=== PATIENT | female | born 1950 | race Caucasian/White ===

== ENCOUNTER 2018-08-25 22:56 | Inpatient (IN) | payer MEDICARE, MEDICAID ==
[~2018-08-25] VITALS: Ht 152.4 cm; Wt 109.3 kg
[2018-08-26] MEDS ORDERED: VANCOMYCIN 1 G PREMIX 200 ML IV ONE (06:15)
[2018-08-26 07:04] LABS: CLARITY URINE CLEAR (CLEAR); COLOR URINE YELLOW (YELLOW); KETONES URINE TRACE (NEGATIVE); LEUKOCYTE ESTERASE URINE NEGATIVE (NEGATIVE); NITRITE URINE NEGATIVE (NEGATIVE); OCCULT BLOOD URINE NEGATIVE (NEGATIVE); PH URINE 6.5 (4.5-8.0); PROTEIN URINE NEGATIVE (NEGATIVE); SPECIFIC GRAVITY URINE 1.019 (1.005-1.030); UROBILINOGEN URINE 0.2 E.U./dL (0.2-1.0)
[2018-08-26 07:54] LABS: BASOPHILS % 0.5 % (0.0-2.0); EOSINOPHILS % 1.6 % (0.0-5.0); HEMATOCRIT. 48.5 % (36.0-48.0); HEMOGLOBIN. 16.9 g/dL (12.0-16.0); LYMPHOCYTES % 30.9 % (20.0-50.0); MEAN CORPUSCULAR HEMOGLOBIN 32.5 pg (28.0-32.0); MEAN CORPUSCULAR VOLUME 93.4 fL (81.0-99.0); MEAN PLATELET VOLUME 9.1 fl (7.4-10.4); MONOCYTES % 7.4 % (2.0-8.0); NEUTROPHILS % 59.6 % (40.0-76.0); PLATELET 170 x1000/uL (130-400); RED BLOOD CELL COUNT 5.19 mill/uL (4.2-5.4); RED CELL DISTRIBUTION WIDTH 14.5 % (11.6-14.6)
[2018-08-26 08:00] LABS: CHLORIDE 104 mEq/L (98-107)
[2018-08-26] MEDS ORDERED: LEVOFLOXACIN 750MG PREMIX 150 ML IV ONE (08:00)
[2018-08-26 08:01] LABS: PARTIAL THROMBOPLASTIN TIME 31.3 sec (23.4-31.0); PROTHROMBIN TIME 10.3 sec (9.1-11.1)
[2018-08-26] MEDS ORDERED: SODIUM CHLORIDE 0.9% 1,000 ML IV ONE (08:33)
[2018-08-26 12:30] VITALS: BP 148/72
[2018-08-26 13:00] VITALS: BP 120/75
[2018-08-26] MEDS ORDERED: ACETAMINOPHEN 325MG TABLET PO PRN (13:45)
[2018-08-26] MEDS ORDERED: ROSU10TA25 MT (14:54)
[2018-08-26] MEDS ORDERED: MULT-1146 MT (14:54)
[2018-08-26] MEDS ORDERED: ENAL1TAB34 MT (14:54)
[2018-08-26] MEDS ORDERED: PARO10TA74 MT (14:54)
[2018-08-26] MEDS ORDERED: OR220 GT (14:54)
[2018-08-26] MEDS ORDERED: DOCU250C69 MT (14:54)
[2018-08-26] MEDS ORDERED: ASCO500C15 MT (14:54)
[2018-08-26] MEDS ORDERED: ALBU18HF2 IH (14:54)
[2018-08-26] MEDS ORDERED: METO-396 MT (14:54)
[2018-08-26] MEDS ORDERED: DIVA-75 MT (14:54)
[2018-08-26] MEDS ORDERED: ZOLP5TAB8 MT (14:54)
[2018-08-26] MEDS ORDERED: DIVA-73 MT (14:54)
[2018-08-26] MEDS ORDERED: MOM MT (14:54)
[2018-08-26] MEDS ORDERED: BACL-141 MT (14:54)
[2018-08-26] MEDS ORDERED: DIVALPROEX SODIUM 250MG DR TABLET PO SCH (17:00)
[2018-08-26] MEDS ORDERED: MAGNESIUM HYDROXIDE 400MG/5ML 30ML UDC PO SCH (17:00)
[2018-08-26] MEDS: PAROXETINE HCL 10MG TABLET PO SCH (18:50)
[2018-08-26] MEDS: DIVALPROEX SODIUM 500MG ER TABLET PO SCH (18:50)
[2018-08-26] MEDS: ENOXAPARIN 40MG/0.4ML SYR SUBCUT SCH ×3 (18:54→22:17)
[2018-08-26] MEDS ORDERED: LORAZEPAM 0.5MG TABLET PO NR (19:30)
[2018-08-26] MEDS ORDERED: ATORVASTATIN CALCIUM 40MG TABLET PO SCH (21:00)
[2018-08-26] MEDS: BACLOFEN 10MG TABLET PO SCH (22:16)
[2018-08-26] MEDS: METOPROLOL TARTRATE 25MG TABLET PO SCH (22:16)
[2018-08-27] VITALS: BP 149/80
[2018-08-27 04:00] VITALS: BP 112/62
[2018-08-27] MEDS: BACLOFEN 10MG TABLET PO SCH ×2 (05:53→17:10)
[2018-08-27 07:37] LABS: BASOPHILS % 0.3 % (0.0-2.0); CHLORIDE 107 mEq/L (98-107); EOSINOPHILS % 1.6 % (0.0-5.0); HEMATOCRIT. 45.3 % (36.0-48.0); HEMOGLOBIN. 15.6 g/dL (12.0-16.0); LYMPHOCYTES % 37.6 % (20.0-50.0); MEAN CORPUSCULAR HEMOGLOBIN 32.4 pg (28.0-32.0); MEAN CORPUSCULAR VOLUME 93.7 fL (81.0-99.0); MONOCYTES % 9.1 % (2.0-8.0); NEUTROPHILS % 51.4 % (40.0-76.0); PLATELET 151 x1000/uL (130-400); RED BLOOD CELL COUNT 4.83 mill/uL (4.2-5.4); RED CELL DISTRIBUTION WIDTH 14.5 % (11.6-14.6)
[2018-08-27 09:00] VITALS: BP 166/83
[2018-08-27] MEDS: ENOXAPARIN 40MG/0.4ML SYR SUBCUT SCH (09:00)
[2018-08-27] MEDS ORDERED: LOSARTAN POTASSIUM 100 MG TABLET PO SCH (09:00)
[2018-08-27] MEDS ORDERED: NICOTINE 14MG PATCH TD SCH (09:00)
[2018-08-27] MEDS: DIVALPROEX SODIUM 500MG ER TABLET PO SCH (09:34)
[2018-08-27] MEDS: PAROXETINE HCL 10MG TABLET PO SCH (09:34)
[2018-08-27] MEDS: METOPROLOL TARTRATE 25MG TABLET PO SCH (09:51)
[2018-08-27] MEDS ORDERED: LEVOFLOXACIN 500MG PREMIX 100 ML IV SCH (11:00)
[2018-08-27 14:58] VITALS: BP 137/85
== END 2018-08-27 18:55 | DRG 383 ==
LOC: ER 22:56 → 7WST 08-26 08:14 → EDBEDREQSVC 08-26 08:17 → EDBEDREQ 08-26 08:17 → CANRESERV 08-26 09:20 → ENRESERV 08-26 09:20 → CANRESERV 08-26 10:03 → ENRESERV 08-26 10:32
PROVIDERS: ADMIT Ophthalmology; ATTEND Ophthalmology
DX: L03.115 Cellulitis of right lower limb (principal); J44.9 Chronic obstructive pulmonary disease, unspecified; F20.9 Schizophrenia, unspecified; G82.20 Paraplegia, unspecified; I10 Essential (primary) hypertension; F32.9 Major depressive disorder, single episode, unspecified; K21.9 Gastro-esophageal reflux disease without esophagitis; L03.116 Cellulitis of left lower limb; E78.5 Hyperlipidemia, unspecified; F17.210 Nicotine dependence, cigarettes, uncomplicated; Z74.01 Bed confinement status; Z88.0 Allergy status to penicillin; Z88.6 Allergy status to analgesic agent; Z88.1 Allergy status to other antibiotic agents; Z88.5 Allergy status to narcotic agent; Z79.899 Other long term (current) drug therapy
CPT/HCPCS: 36415; 71045; 80048; 80165; 83605; 83880; 84145; 84484; 93005; 93970; 96374; 96375; 99285; J1650; J1956; J3370; J7030

== ENCOUNTER 2018-12-04 12:52 | Inpatient (IN) | payer MEDICARE, MEDICAID ==
[~2018-12-04] VITALS: Ht 162.6 cm; Wt 107.5 kg
[~2018-12-04 12:52] MED LIST: ALBU18HF2 IH; ASCO500C15 MT; BACL-141 MT; DIVA-73 MT; DIVA-75 MT; DOCU250C69 MT; ENAL1TAB34 MT; METO-396 MT; MOM MT; MULT-1146 MT; OR220 GT; PARO10TA74 MT; ROSU10TA25 MT; ZOLP5TAB8 MT
[2018-12-04 15:18] LABS: BASOPHILS % 0.3 % (0.0-2.0); CHLORIDE 102 mEq/L (98-107); EOSINOPHILS % 1.7 % (0.0-5.0); HEMATOCRIT. 50.6 % (36.0-48.0); HEMOGLOBIN. 17.2 g/dL (12.0-16.0); LYMPHOCYTES % 30.5 % (20.0-50.0); MEAN CORPUSCULAR HEMOGLOBIN 31.9 pg (28.0-32.0); MEAN CORPUSCULAR VOLUME 93.9 fL (81.0-99.0); MONOCYTES % 12.5 % (2.0-8.0); PLATELET 142 x1000/uL (130-400); RED BLOOD CELL COUNT 5.39 mill/uL (4.2-5.4); RED CELL DISTRIBUTION WIDTH 14.5 % (11.6-14.6)
[2018-12-04 15:19] LABS: INR 1.1; PROTHROMBIN TIME 10.8 sec (9.1-11.1)
[2018-12-04] MEDS ORDERED: CLINDAMYCIN 600 MG in DEXTROSE 5% WATER 50 ML IV ONE ×2 (16:00→17:00)
[2018-12-04] MEDS ORDERED: CLONIDINE 0.1MG TABLET PO PRN (17:45)
[2018-12-04] MEDS ORDERED: VANCOMYCIN 1 G PREMIX 200 ML IV SCH (17:45)
[2018-12-04] MEDS ORDERED: ALBUTEROL 6.7GM HFA INHALER ORI PRN (18:15)
[2018-12-04 19:12] LABS: HEPATITIS B SURFACE ANTIGEN NEGATIVE
[2018-12-04 22:00] VITALS: BP 127/74
[2018-12-04] MEDS ORDERED: ALBUTEROL (0.083%) 2.5MG/3ML NEB HHN PRN (22:00)
[2018-12-04 22:12] VITALS: BP 127/74
[2018-12-04] MEDS: DIVALPROEX SODIUM 250MG DR TABLET PO SCH (23:03)
[2018-12-04] MEDS: FUROSEMIDE 40MG TABLET PO SCH (23:03)
[2018-12-04] MEDS: FAMOTIDINE 20MG TABLET PO SCH (23:03)
[2018-12-04] MEDS: ASCORBIC ACID 500 MG TABLET PO SCH (23:03)
[2018-12-04] MEDS: ENALAPRIL 5MG TABLET PO SCH (23:04)
[2018-12-04] MEDS ORDERED: VANCOMYCIN 1500MG in DEXTROSE 5% WATER 250ML IV NR (23:30)
[2018-12-05] VITALS: BP 127/74
[2018-12-05] MEDS ORDERED: IBUPROFEN 400MG TABLET PO PRN
[2018-12-05] MEDS: CLINDAMYCIN 600 MG in DEXTROSE 5% WATER 50 ML IV SCH ×3 (00:10→21:08)
[2018-12-05] MEDS: ZOLPIDEM TARTRATE 5MG TABLET PO PRN ×2 (03:32→21:39)
[2018-12-05 04:00] VITALS: BP 164/87
[2018-12-05] MEDS: DIVALPROEX SODIUM 250MG DR TABLET PO SCH ×3 (05:46→21:07)
[2018-12-05] MEDS: FUROSEMIDE 40MG TABLET PO SCH ×2 (06:55→17:46)
[2018-12-05 08:00] VITALS: BP 139/72
[2018-12-05] MEDS: ENOXAPARIN 30MG/0.3ML SYR SUBCUT SCH ×4 (09:00→21:00)
[2018-12-05] MEDS: NYSTATIN POWDER 15GM TOP SCH ×3 (09:00→17:00)
[2018-12-05] MEDS: MULTIVITAMINS,THER W-MINERALS TABLET PO SCH (09:34)
[2018-12-05] MEDS: ASCORBIC ACID 500 MG TABLET PO SCH ×2 (09:34→20:46)
[2018-12-05] MEDS: ENALAPRIL 5MG TABLET PO SCH ×2 (09:35→20:46)
[2018-12-05] MEDS: ZINC SULFATE 220 MG ( 50 ) CAPSULE PO SCH (09:35)
[2018-12-05] MEDS: FAMOTIDINE 20MG TABLET PO SCH ×2 (09:35→20:45)
[2018-12-05] MEDS: PAROXETINE HCL 10MG TABLET PO SCH (09:35)
[2018-12-05] MEDS: OLANZAPINE 5MG TABLET ODT PO SCH ×2 (09:35→17:46)
[2018-12-05] MEDS ORDERED: ALBUTEROL (0.083%) 2.5MG/3ML NEB HHN SCH (09:45)
[2018-12-05 10:35] LABS: BASOPHILS % 0.4 % (0.0-2.0); EOSINOPHILS % 2.6 % (0.0-5.0); HEMATOCRIT. 50.5 % (36.0-48.0); LYMPHOCYTES % 29.7 % (20.0-50.0); MEAN CORPUSCULAR HEMOGLOBIN 31.5 pg (28.0-32.0); MEAN CORPUSCULAR VOLUME 93.5 fL (81.0-99.0); MONOCYTES % 10.3 % (2.0-8.0); PLATELET 150 x1000/uL (130-400); RED BLOOD CELL COUNT 5.39 mill/uL (4.2-5.4); RED CELL DISTRIBUTION WIDTH 14.4 % (11.6-14.6)
[2018-12-05 10:52] LABS: CHLORIDE 102 mEq/L (98-107)
[2018-12-05 11:01] LABS: LDL CHOLESTEROL 45 mg/dL (5-100)
[2018-12-05 11:04] LABS: HDL CHOLESTEROL 40 mg/dL (40-59)
[2018-12-05 12:00] VITALS: BP 130/91
[2018-12-05] MEDS ORDERED: VANCOMYCIN 1250MG in DEXTROSE 5% WATER 250ML IV SCH (13:00)
[2018-12-05 16:00] VITALS: BP 140/79
[2018-12-05] MEDS: VANCOMYCIN 1 G PREMIX 200 ML IV SCH (17:46)
[2018-12-05 20:00] VITALS: BP 144/82
[2018-12-05] MEDS: LAMOTRIGINE 25MG TABLET PO SCH (21:07)
[2018-12-06] VITALS: BP 146/77
[2018-12-06 04:00] VITALS: BP 148/78
[2018-12-06] MEDS: DIVALPROEX SODIUM 250MG DR TABLET PO SCH ×3 (05:27→22:13)
[2018-12-06] MEDS: CLINDAMYCIN 600 MG in DEXTROSE 5% WATER 50 ML IV SCH (05:27)
[2018-12-06] MEDS: FUROSEMIDE 40MG TABLET PO SCH (06:45)
[2018-12-06 08:00] VITALS: BP 144/78
[2018-12-06] MEDS: ENOXAPARIN 30MG/0.3ML SYR SUBCUT SCH ×2 (09:00→21:00)
[2018-12-06] MEDS: ENALAPRIL 5MG TABLET PO SCH ×2 (10:11→20:20)
[2018-12-06] MEDS: ASCORBIC ACID 500 MG TABLET PO SCH ×2 (10:11→20:19)
[2018-12-06] MEDS: FAMOTIDINE 20MG TABLET PO SCH ×2 (10:12→20:19)
[2018-12-06] MEDS: NYSTATIN POWDER 15GM TOP SCH ×3 (10:12→18:04)
[2018-12-06] MEDS: MULTIVITAMINS,THER W-MINERALS TABLET PO SCH (10:12)
[2018-12-06] MEDS: LAMOTRIGINE 25MG TABLET PO SCH ×2 (10:12→20:18)
[2018-12-06] MEDS: ZINC SULFATE 220 MG ( 50 ) CAPSULE PO SCH (10:12)
[2018-12-06] MEDS: OLANZAPINE 5MG TABLET ODT PO SCH ×2 (10:12→18:04)
[2018-12-06] MEDS: PAROXETINE HCL 10MG TABLET PO SCH (10:12)
[2018-12-06] MEDS ORDERED: IOHEXOL-300 100 ML BOTTLE ONE (11:33)
[2018-12-06 12:00] VITALS: BP 140/83
[2018-12-06] MEDS: CLINDAMYCIN HCL 150MG CAPSULE PO SCH ×3 (12:36→23:50)
[2018-12-06] MEDS: VANCOMYCIN 1 G PREMIX 200 ML IV SCH (12:36)
[2018-12-06] MEDS: IBUPROFEN 400MG TABLET PO PRN ×2 (13:17→22:13)
[2018-12-06 16:00] VITALS: BP 151/80
[2018-12-06 16:57] LABS: CHLORIDE 102 mEq/L (98-107)
[2018-12-06 20:00] VITALS: BP 145/83
[2018-12-06] MEDS: ZOLPIDEM TARTRATE 5MG TABLET PO PRN (22:18)
[2018-12-07] VITALS: BP 136/76
[2018-12-07] MEDS ORDERED: LORAZEPAM 2MG/ML CPJ IV SCH (01:15)
[2018-12-07 04:00] VITALS: BP 103/62
[2018-12-07] MEDS: DIVALPROEX SODIUM 250MG DR TABLET PO SCH ×2 (05:53→14:15)
[2018-12-07] MEDS: CLINDAMYCIN HCL 150MG CAPSULE PO SCH ×3 (05:54→18:01)
[2018-12-07] MEDS: VANCOMYCIN 1 G PREMIX 200 ML IV SCH (05:54)
[2018-12-07] MEDS: IBUPROFEN 400MG TABLET PO PRN ×2 (05:54→14:34)
[2018-12-07 08:00] VITALS: BP 174/93
[2018-12-07] MEDS ORDERED: FUROSEMIDE 40MG TABLET PO SCH (09:00)
[2018-12-07] MEDS: NYSTATIN POWDER 15GM TOP SCH ×3 (09:00→17:00)
[2018-12-07] MEDS: ENOXAPARIN 30MG/0.3ML SYR SUBCUT SCH (09:00)
[2018-12-07] MEDS: PAROXETINE HCL 10MG TABLET PO SCH (10:16)
[2018-12-07] MEDS: OLANZAPINE 5MG TABLET ODT PO SCH ×2 (10:16→18:01)
[2018-12-07] MEDS: ASCORBIC ACID 500 MG TABLET PO SCH (10:16)
[2018-12-07] MEDS: LAMOTRIGINE 25MG TABLET PO SCH (10:17)
[2018-12-07] MEDS: FAMOTIDINE 20MG TABLET PO SCH (10:17)
[2018-12-07] MEDS: MULTIVITAMINS,THER W-MINERALS TABLET PO SCH (10:18)
[2018-12-07] MEDS: ENALAPRIL 5MG TABLET PO SCH (10:18)
[2018-12-07] MEDS: ZINC SULFATE 220 MG ( 50 ) CAPSULE PO SCH (10:19)
[2018-12-07 12:00] VITALS: BP 147/83
[2018-12-07 16:00] VITALS: BP 165/95
[2018-12-07] MEDS ORDERED: VANCOMYCIN 1 G PREMIX 200 ML IV SCH (18:00)
[2018-12-07] MEDS ORDERED: LAMO25TA71 PO (18:25)
[2018-12-07] MEDS ORDERED: DIVA250T4 PO (18:40)
[2018-12-07] MEDS ORDERED: ENAL5TAB PO (18:41)
[2018-12-07] MEDS ORDERED: DIVA-75 PO (18:41)
[2018-12-07] MEDS ORDERED: OLAN5TAB26 PO (18:42)
[2018-12-07] MEDS ORDERED: BENZ0.5T3 MT (18:43)
[2018-12-07] MEDS ORDERED: FURO-151 MT (18:44)
[2018-12-07] MEDS ORDERED: NIZA150C7 PO (18:45)
[2018-12-07] MEDS ORDERED: IBUP-2271 PO (18:46)
[2018-12-07 18:49] VITALS: BP 147/83
== END 2018-12-07 19:22 | disposition home health service (06) | DRG 383 ==
LOC: ER 13:35 → 6EST 16:20 → EDBEDREQ 16:22 → ENRESERV 19:01 → CANRESERV 19:06 → ENRESERV 19:06
PROVIDERS: ADMIT Internal Medicine Critical Care Medicine; ATTEND Internal Medicine Critical Care Medicine
DX: L03.115 Cellulitis of right lower limb (principal); E66.01 Morbid (severe) obesity due to excess calories; D75.1 Secondary polycythemia; J44.9 Chronic obstructive pulmonary disease, unspecified; F25.9 Schizoaffective disorder, unspecified; Z68.41 Body mass index [BMI] 40.0-44.9, adult; L03.116 Cellulitis of left lower limb; G40.909 Epilepsy, unspecified, not intractable, without status epilepticus; Z79.899 Other long term (current) drug therapy; Z88.0 Allergy status to penicillin; I10 Essential (primary) hypertension; R32 Unspecified urinary incontinence; D35.02 Benign neoplasm of left adrenal gland; K57.90 Diverticulosis of intestine, part unspecified, without perforation or abscess without bleeding; F17.210 Nicotine dependence, cigarettes, uncomplicated; Z88.1 Allergy status to other antibiotic agents
CPT/HCPCS: 36415; 71045; 74177; 76700; 80048; 80061; 80202; 83880; 84484; 86803; 93005; 93970; 96365; 96367; 97162; 97165; 99285; J1650; J3370; J3490; J7040; J7060; Q9967

== ENCOUNTER 2019-05-23 14:53 | Emergency (ER) | payer MEDICARE, MEDICAID ==
[~2019-05-23] VITALS: Ht 165.1 cm; Wt 137.0 kg
[~2019-05-23 14:53] MED LIST changes: -BACL-141 MT; +BENZ0.5T43 MT; -DIVA-73 MT; -DIVA-75 MT; +DIVA-75 PO; +DIVA250T4 PO; -ENAL1TAB34 MT; +ENAL5TAB PO; +FURO-151 MT; +IBUP-2271 PO; +LAMO25TA71 PO; -METO-396 MT; +NIZA150C7 PO; +OLAN5TAB26 PO; -ROSU10TA25 MT
[2019-05-23] MEDS ORDERED: LIDOCAINE HCL/EPINEPHRINE 1%-EPI 1:100,000 30 ML VIAL INFIL ONE (15:45)
[2019-05-23] MEDS ORDERED: LIDOCAINE HCL/EPINEPHRINE 1%-EPI 1:100,000 20 ML VIAL IJ NR (16:00)
[2019-05-23 18:18] LABS: BASOPHILS % 0.5 % (0.0-2.0); EOSINOPHILS % 1.3 % (0.0-5.0); HEMATOCRIT. 47.5 % (36.0-48.0); HEMOGLOBIN. 16.4 g/dL (12.0-16.0); LYMPHOCYTES % 33.5 % (20.0-50.0); MEAN CORPUSCULAR HEMOGLOBIN 32.7 pg (28.0-32.0); MEAN CORPUSCULAR VOLUME 94.5 fL (81.0-99.0); MEAN PLATELET VOLUME 9.7 fl (7.4-10.4); MONOCYTES % 6.8 % (2.0-8.0); NEUTROPHILS % 57.9 % (40.0-76.0); PLATELET 217 x1000/uL (130-400); RED BLOOD CELL COUNT 5.03 mill/uL (4.2-5.4); RED CELL DISTRIBUTION WIDTH 14.2 % (11.6-14.6)
[2019-05-23 18:26] LABS: PARTIAL THROMBOPLASTIN TIME 29.4 sec (23.4-31.0); PROTHROMBIN TIME 10.3 sec (9.6-11.0)
[2019-05-23 20:12] LABS: CHLORIDE 107 mEq/L (98-107)
[2019-05-23 23:06] VITALS: BP 128/74
== END 2019-05-23 23:06 | disposition home or self-care (01) ==
LOC: ER 15:44
DX: S01.511A Laceration without foreign body of lip, initial encounter (principal); J44.9 Chronic obstructive pulmonary disease, unspecified; F32.9 Major depressive disorder, single episode, unspecified; K21.9 Gastro-esophageal reflux disease without esophagitis; I10 Essential (primary) hypertension; F20.9 Schizophrenia, unspecified; W05.0XXA Fall from non-moving wheelchair, initial encounter; Y93.89 Activity, other specified; Y92.89 Other specified places as the place of occurrence of the external cause; Y99.8 Other external cause status; Z79.899 Other long term (current) drug therapy; Z88.6 Allergy status to analgesic agent; Z88.1 Allergy status to other antibiotic agents; Z88.5 Allergy status to narcotic agent
CPT/HCPCS: 36415; 40650; 80053; 85025; 85610; 85730; 99284; J3490

== ENCOUNTER 2021-03-26 14:38 | Emergency (ER) | payer MEDICARE, MEDICAID ==
[~2021-03-26] VITALS: Ht 152.4 cm; Wt 95.0 kg
[~2021-03-26 14:38] MED LIST changes: -ENAL5TAB PO; +ENAL5TAB21 PO; -IBUP-2271 PO; +IBUP-2741 PO; -OR220 GT; +ZINC1CAP2 GT
[2021-03-26] MEDS ORDERED: FAMOTIDINE 20MG TABLET PO NR (16:45)
[2021-03-26 17:41] LABS: BASOPHILS % 0.7 % (0.0-2.0); EOSINOPHILS % 1.6 % (0.0-5.0); HEMATOCRIT. 54.6 % (36.0-48.0); HEMOGLOBIN. 18.9 g/dL (12.0-16.0); LYMPHOCYTES % 33.9 % (20.0-50.0); MEAN CORPUSCULAR HEMOGLOBIN 33.8 pg (28.0-32.0); MEAN CORPUSCULAR VOLUME 97.5 fL (81.0-99.0); MEAN PLATELET VOLUME 8.8 fl (7.4-10.4); MONOCYTES % 9.2 % (2.0-8.0); NEUTROPHILS % 54.6 % (40.0-76.0); PLATELET 141 x1000/uL (130-400); RED CELL DISTRIBUTION WIDTH 14.9 % (11.6-14.6)
[2021-03-26 17:44] LABS: CHLORIDE 106 mEq/L (98-107)
[2021-03-26 17:54] LABS: PROTHROMBIN TIME 10.9 sec (9.6-11.0)
[2021-03-26] MEDS ORDERED: IBUPROFEN 600MG TABLET PO NR (18:15)
[2021-03-26 21:31] VITALS: BP 145/76
== END 2021-03-26 23:48 | disposition home or self-care (01) ==
LOC: ER 14:38
DX: K80.20 Calculus of gallbladder without cholecystitis without obstruction (principal); R03.0 Elevated blood-pressure reading, without diagnosis of hypertension; I10 Essential (primary) hypertension; G40.909 Epilepsy, unspecified, not intractable, without status epilepticus; J44.9 Chronic obstructive pulmonary disease, unspecified; K21.9 Gastro-esophageal reflux disease without esophagitis; F20.9 Schizophrenia, unspecified
CPT/HCPCS: 36415; 76705; 80053; 85025; 93005; 99285

== ENCOUNTER 2021-12-25 07:28 | Inpatient (IN) | payer MEDICARE, MEDICAID ==
[~2021-12-25] VITALS: Ht 165.1 cm; Wt 109.8 kg
[~2021-12-25 07:28] MED LIST changes: +DOXY100C5 PO; +LEVO500T89 PO; -OLAN5TAB26 PO; +OLAN5TAB74 PO
[2021-12-25] MEDS: KETOROLAC 30MG/ML VIAL IV STA ×2 (10:06→13:13)
[2021-12-25 13:18] LABS: BASOPHILS % 0.7 % (0.0-2.0); EOSINOPHILS % 0.6 % (0.0-5.0); HEMATOCRIT. 52.8 % (36.0-48.0); HEMOGLOBIN. 17.6 g/dL (12.0-16.0); LYMPHOCYTES % 31.3 % (20.0-50.0); MEAN CORPUSCULAR HEMOGLOBIN 30.9 pg (28.0-32.0); MEAN CORPUSCULAR VOLUME 92.7 fL (81.0-99.0); MEAN PLATELET VOLUME 9.3 fl (7.4-10.4); MONOCYTES % 7.7 % (2.0-8.0); NEUTROPHILS % 59.7 % (40.0-76.0); PLATELET 143 x1000/uL (130-400); RED CELL DISTRIBUTION WIDTH 13.6 % (11.6-14.6)
[2021-12-25 13:25] LABS: CHLORIDE 105 mEq/L (98-107)
[2021-12-25] MEDS ORDERED: DEXAMETHASONE 4MG/ML 1ML VIAL IV ONE (14:15)
[2021-12-25 15:19] LABS: CLARITY URINE CLEAR (CLEAR); COLOR URINE YELLOW (YELLOW); KETONES URINE TRACE (NEGATIVE); LEUKOCYTE ESTERASE URINE NEGATIVE (NEGATIVE); NITRITE URINE NEGATIVE (NEGATIVE); OCCULT BLOOD URINE NEGATIVE (NEGATIVE); PH URINE 8.5 (4.5-8.0); PROTEIN URINE NEGATIVE (NEGATIVE); SPECIFIC GRAVITY URINE 1.011 (1.005-1.030)
[2021-12-25 15:20] LABS: PROTHROMBIN TIME 11.1 sec (9.6-11.0)
[2021-12-25] MEDS: DEXT 5%/LACTATED RINGERS 1,000 ML IV SCH (15:36)
[2021-12-25 15:40] LABS: *AMPHETAMINES SCREEN URINE NEGATIVE (NEGATIVE); *BARBITURATES SCREEN URINE NEGATIVE (NEGATIVE); *COCAINE SCREEN URINE NEGATIVE (NEGATIVE); CANNABINOID URINE SCREEN NEGATIVE (NEGATIVE)
[2021-12-25 15:41] LABS: *BENZODIAZEPINES SCREEN URINE NEGATIVE (NEGATIVE); METHADONE URINE SCREEN NEGATIVE (NEGATIVE); OPIATES URINE SCREEN NEGATIVE (NEGATIVE); PHENCYCLIDINE URINE SCREEN NEGATIVE (NEGATIVE)
[2021-12-25] MEDS ORDERED: IPRATROPIUM/ALBUTEROL 0.5-3(2.5)MG/3ML NEB HHN PRN (15:45)
[2021-12-25] MEDS ORDERED: KETOROLAC 30MG/ML VIAL IV NR (17:45)
[2021-12-25] MEDS: DEXAMETHASONE 4MG/ML 1ML VIAL IV SCH ×2 (19:03→19:09)
[2021-12-26] VITALS (42 sets, daily range): BP systolic 102–142; BP diastolic 57–85
[2021-12-26] MEDS: DEXT 5%/LACTATED RINGERS 1,000 ML IV SCH ×2 (01:56→11:00)
[2021-12-26] MEDS ORDERED: THROMBIN (BOVINE) 5000 UNITS/VIAL TOP ONE ×3 (07:21→10:16)
[2021-12-26] MEDS ORDERED: LIDOCAINE HCL/EPINEPHRINE 1%-EPI 1:100,000 30 ML VIAL INFIL ONE ×2 (07:21→10:00)
[2021-12-26] MEDS ORDERED: GENTAMICIN SULF 40MG/ML 2ML VIAL ONE ×3 (07:21→09:59)
[2021-12-26] MEDS ORDERED: ROCURONIUM BROMIDE 10MG/ML VIAL 5ML IV ONE (11:33)
[2021-12-26] MEDS ORDERED: DEXAMETHASONE 4MG/ML 1ML VIAL ONE ×2 (11:34→12:02)
[2021-12-26] MEDS ORDERED: CEFAZOLIN SODIUM 1000MG/VIAL ONE (11:44)
[2021-12-26] MEDS ORDERED: ONDANSETRON HCL 4MG/2ML INJ IV PRN (11:45)
[2021-12-26] MEDS ORDERED: HYDROMORPHONE HCL/PF 2MG/ML (OR) ONE (11:45)
[2021-12-26] MEDS ORDERED: ACETAMINOPHEN 325MG TABLET PO PRN ×2 (11:45→12:00)
[2021-12-26] MEDS ORDERED: HYDRALAZINE 20MG/ML VIAL ONE ×2 (11:58→12:03)
[2021-12-26] MEDS ORDERED: CALCIUM CHLORIDE 1GM/10ML SYR IV ONE (12:08)
[2021-12-26] MEDS ORDERED: ALBUMIN HUMAN 12.5GM/50ML (25%) IV ONE (12:12)
[2021-12-26] MEDS ORDERED: ALBUMIN HUMAN 25GM/100ML (25%) IV ONE (12:35)
[2021-12-26] MEDS ORDERED: NEOSTIGMINE METHYLSULFATE 1MG/ML 10 ML VIAL ONE (13:12)
[2021-12-26] MEDS ORDERED: GLYCOPYRROLATE 0.2 MG/ML 2ML VIAL ONE ×2 (13:13→13:15)
[2021-12-26] MEDS ORDERED: VECURONIUM BROMIDE 10 MG/VIAL IV ONE (13:22)
[2021-12-26] MEDS ORDERED: METOPROLOL TARTRATE 5MG/5ML VIAL IV ONE (13:22)
[2021-12-26] MEDS ORDERED: MORPHINE SULFATE 4 MG/ML CPJ (NOT FOR IM USE) IV PRN (13:30)
[2021-12-26] MEDS: MORPHINE SULFATE 2 MG/ML CPJ (NOT FOR IM USE) IV PRN ×3 (16:22→22:51)
[2021-12-26] MEDS: DEXAMETHASONE 4MG/ML 1ML VIAL IV SCH ×2 (17:20→23:47)
[2021-12-26] MEDS: NICARDIPINE 100 MG in SODIUM CHLORIDE 0.9% 60 ML IV PRN (18:40)
[2021-12-26] MEDS: CEFAZOLIN 1000MG PREMIX 50 ML IV SCH (19:53)
[2021-12-26] MEDS ORDERED: CEFAZOLIN SODIUM 1000MG/VIAL IV SCH (20:00)
[2021-12-26] MEDS: FAMOTIDINE 20MG TABLET PO SCH ×2 (20:59→21:00)
[2021-12-27] VITALS (89 sets, daily range): BP systolic 72–162; BP diastolic 24–104
[2021-12-27] MEDS: IBUPROFEN 400MG TABLET PO PRN (02:01)
[2021-12-27] MEDS: DEXT 5%/LACTATED RINGERS 1,000 ML IV SCH ×2 (02:13→15:57)
[2021-12-27] MEDS: MORPHINE SULFATE 2 MG/ML CPJ (NOT FOR IM USE) IV PRN ×6 (04:12→21:46)
[2021-12-27] MEDS ORDERED: PHENYLEPHRINE 100 MG in DEXT 5% WATER 240 ML IV PRN (06:00)
[2021-12-27] MEDS: DEXAMETHASONE 4MG/ML 1ML VIAL IV SCH ×3 (06:00→18:37)
[2021-12-27] MEDS ORDERED: NOREPINEPHRINE 32 MG in DEXT 5% WATER 218 ML IV PRN (06:00)
[2021-12-27] MEDS ORDERED: MIDAZOLAM HCL 100 MG in SODIUM CHLORIDE 0.9% 80 ML IV PRN (06:00)
[2021-12-27] MEDS: CEFAZOLIN 1000MG PREMIX 50 ML IV SCH ×3 (06:24→21:32)
[2021-12-27 06:30] LABS: HEMATOCRIT. 46.6 % (36.0-48.0); HEMOGLOBIN. 15.6 g/dL (12.0-16.0); MEAN CORPUSCULAR HEMOGLOBIN 31.2 pg (28.0-32.0); MEAN PLATELET VOLUME 10.4 fl (7.4-10.4); PLATELET 132 x1000/uL (130-400); RED BLOOD CELL COUNT 5.01 mill/uL (4.2-5.4); RED CELL DISTRIBUTION WIDTH 13.4 % (11.6-14.6)
[2021-12-27] MEDS: NICARDIPINE 100 MG in SODIUM CHLORIDE 0.9% 60 ML IV PRN ×2 (07:05→19:59)
[2021-12-27 07:12] LABS: CHLORIDE 104 mEq/L (98-107)
[2021-12-27] MEDS ORDERED: DIAZEPAM 5 MG TABLET PO SCH (08:15)
[2021-12-27] MEDS ORDERED: PNEUMOCOCCAL 23-VAL P-SAC VAC 0.5 ML IM ONE (09:00)
[2021-12-27 09:36] LABS: PLATELET ESTIMATE NORMAL
[2021-12-27] MEDS: IPRATROPIUM/ALBUTEROL 0.5-3(2.5)MG/3ML NEB HHN SCH ×2 (17:25→20:28)
[2021-12-27] MEDS: FAMOTIDINE 20MG TABLET PO SCH (20:00)
[2021-12-28] VITALS (92 sets, daily range): BP systolic 84–220; BP diastolic 24–150
[2021-12-28] MEDS: IPRATROPIUM/ALBUTEROL 0.5-3(2.5)MG/3ML NEB HHN SCH ×6 (00:23→21:05)
[2021-12-28] MEDS: MORPHINE SULFATE 2 MG/ML CPJ (NOT FOR IM USE) IV PRN ×5 (00:57→21:55)
[2021-12-28] MEDS: NICARDIPINE 100 MG in SODIUM CHLORIDE 0.9% 60 ML IV PRN ×3 (02:19→21:13)
[2021-12-28] MEDS: DEXT 5%/LACTATED RINGERS 1,000 ML IV SCH ×3 (03:00→14:30)
[2021-12-28] MEDS: CEFAZOLIN 1000MG PREMIX 50 ML IV SCH ×2 (05:10→14:30)
[2021-12-28] MEDS ORDERED: DIVALPROEX SODIUM 250MG DR TABLET PO SCH (10:15)
[2021-12-28] MEDS: OLANZAPINE 5MG TABLET PO SCH ×2 (10:29→18:34)
[2021-12-28] MEDS: PAROXETINE HCL 10MG TABLET PO SCH (10:29)
[2021-12-28] MEDS: ZINC SULFATE 220 MG ( 50 ) CAPSULE PO SCH (10:29)
[2021-12-28] MEDS ORDERED: LAMOTRIGINE 25MG TABLET PO SCH (10:30)
[2021-12-28] MEDS ORDERED: ENALAPRIL 5MG TABLET PO SCH (10:30)
[2021-12-28 10:41] LABS: HEMATOCRIT. 47.4 % (36.0-48.0); HEMOGLOBIN. 15.7 g/dL (12.0-16.0); MEAN CORPUSCULAR HEMOGLOBIN 30.8 pg (28.0-32.0); RED CELL DISTRIBUTION WIDTH 13.6 % (11.6-14.6)
[2021-12-28] MEDS: ASCORBIC ACID 500 MG TABLET PO SCH (10:45)
[2021-12-28] MEDS: MULTIVITAMINS,THER W-MINERALS TABLET PO SCH (10:45)
[2021-12-28 11:08] LABS: CHLORIDE 105 mEq/L (98-107)
[2021-12-28] MEDS: METHYLPREDNISOLONE SOD SUCC 40 MG/ML VIAL IV SCH ×2 (12:00→18:39)
[2021-12-28 12:06] LABS: PLATELET 136 x1000/uL (130-400)
[2021-12-28 12:10] LABS: PLATELET ESTIMATE NORMAL
[2021-12-28] MEDS ORDERED: ZOLPIDEM TARTRATE 5MG TABLET PO PRN (13:30)
[2021-12-28] MEDS ORDERED: FURO-152 MT (13:47)
[2021-12-28] MEDS ORDERED: METO-396 MT (13:48)
[2021-12-28] MEDS ORDERED: POTA-79 MT (13:51)
[2021-12-28] MEDS: DOCUSATE SODIUM 250MG CAPSULE PO SCH (18:34)
[2021-12-28] MEDS: ENALAPRIL 5MG TABLET PO SCH (18:34)
[2021-12-28] MEDS: BENZTROPINE MESYLATE 0.5MG TABLET PO SCH (18:34)
[2021-12-28] MEDS: FAMOTIDINE 20MG TABLET PO SCH (20:11)
[2021-12-28] MEDS ORDERED: DIVALPROEX SODIUM 500MG DR TABLET PO SCH (21:00)
[2021-12-29] VITALS (74 sets, daily range): BP systolic 96–153; BP diastolic 57–91
[2021-12-29] MEDS: IPRATROPIUM/ALBUTEROL 0.5-3(2.5)MG/3ML NEB HHN SCH ×5 (00:55→22:10)
[2021-12-29] MEDS: METHYLPREDNISOLONE SOD SUCC 40 MG/ML VIAL IV SCH ×3 (03:15→19:00)
[2021-12-29] MEDS: NICARDIPINE 100 MG in SODIUM CHLORIDE 0.9% 60 ML IV PRN (05:30)
[2021-12-29] MEDS: ZINC SULFATE 220 MG ( 50 ) CAPSULE PO SCH (08:19)
[2021-12-29] MEDS: MULTIVITAMINS,THER W-MINERALS TABLET PO SCH (08:19)
[2021-12-29] MEDS: BENZTROPINE MESYLATE 0.5MG TABLET PO SCH ×2 (08:19→16:47)
[2021-12-29] MEDS: PAROXETINE HCL 10MG TABLET PO SCH (08:19)
[2021-12-29] MEDS: ASCORBIC ACID 500 MG TABLET PO SCH (08:20)
[2021-12-29] MEDS: OLANZAPINE 5MG TABLET PO SCH ×2 (08:20→16:47)
[2021-12-29] MEDS: FUROSEMIDE 20MG TABLET PO SCH (08:20)
[2021-12-29] MEDS: DIVALPROEX SODIUM 500MG DR TABLET PO SCH (08:20)
[2021-12-29] MEDS: DOCUSATE SODIUM 250MG CAPSULE PO SCH ×2 (08:20→16:47)
[2021-12-29] MEDS: ENALAPRIL 5MG TABLET PO SCH ×2 (08:21→16:48)
[2021-12-29] MEDS ORDERED: FUROSEMIDE 40MG TABLET PO SCH (09:00)
[2021-12-29] MEDS: MORPHINE SULFATE 2 MG/ML CPJ (NOT FOR IM USE) IV PRN (09:42)
[2021-12-29] MEDS ORDERED: NALOXONE HCL 0.4MG/ML VIAL IV PRN (11:00)
[2021-12-29] MEDS: LEVOFLOXACIN 500MG PREMIX 100 ML IV SCH (14:37)
[2021-12-29] MEDS: HYDROCODONE/ACETAMINOPHEN 10/325MG TABLET PO PRN (14:41)
[2021-12-29] MEDS: FAMOTIDINE 20MG TABLET PO SCH (20:36)
[2021-12-30] MEDS: IPRATROPIUM/ALBUTEROL 0.5-3(2.5)MG/3ML NEB HHN SCH ×5 (01:17→15:47)
[2021-12-30] MEDS: METHYLPREDNISOLONE SOD SUCC 40 MG/ML VIAL IV SCH ×3 (02:43→18:18)
[2021-12-30 08:00] VITALS: BP 144/84
[2021-12-30] MEDS: DOCUSATE SODIUM 250MG CAPSULE PO SCH ×2 (09:00→18:45)
[2021-12-30] MEDS: PAROXETINE HCL 10MG TABLET PO SCH (09:47)
[2021-12-30] MEDS: ASCORBIC ACID 500 MG TABLET PO SCH (09:47)
[2021-12-30] MEDS: MULTIVITAMINS,THER W-MINERALS TABLET PO SCH (09:47)
[2021-12-30] MEDS: DIVALPROEX SODIUM 500MG DR TABLET PO SCH (09:47)
[2021-12-30] MEDS: FUROSEMIDE 20MG TABLET PO SCH ×2 (09:47→17:00)
[2021-12-30] MEDS: BENZTROPINE MESYLATE 0.5MG TABLET PO SCH ×2 (09:48→17:00)
[2021-12-30] MEDS: ZINC SULFATE 220 MG ( 50 ) CAPSULE PO SCH (09:48)
[2021-12-30] MEDS: ENALAPRIL 5MG TABLET PO SCH ×2 (09:48→17:00)
[2021-12-30] MEDS: OLANZAPINE 5MG TABLET PO SCH ×2 (09:48→17:00)
[2021-12-30] MEDS: HYDROCODONE/ACETAMINOPHEN 10/325MG TABLET PO PRN ×3 (09:54→18:25)
[2021-12-30 10:24] LABS: BASOPHILS % 0.1 % (0.0-2.0); HEMATOCRIT. 50.3 % (36.0-48.0); HEMOGLOBIN. 16.9 g/dL (12.0-16.0); LYMPHOCYTES % 11.2 % (20.0-50.0); MEAN CORPUSCULAR HEMOGLOBIN 31.6 pg (28.0-32.0); MEAN PLATELET VOLUME 8.7 fl (7.4-10.4); MONOCYTES % 3.7 % (2.0-8.0); PLATELET 152 x1000/uL (130-400); RED BLOOD CELL COUNT 5.35 mill/uL (4.2-5.4); RED CELL DISTRIBUTION WIDTH 13.3 % (11.6-14.6)
[2021-12-30 10:58] LABS: CHLORIDE 104 mEq/L (98-107)
[2021-12-30 12:00] VITALS: BP 132/87
[2021-12-30] MEDS: LEVOFLOXACIN 500MG PREMIX 100 ML IV SCH (15:09)
[2021-12-30 16:00] VITALS: BP 141/88
[2021-12-30 20:00] VITALS: BP 158/86
[2021-12-30] MEDS: CLONIDINE 0.1MG TABLET PO PRN (22:06)
[2021-12-30] MEDS: FAMOTIDINE 20MG TABLET PO SCH (22:06)
[2021-12-31] VITALS: BP 164/94
[2021-12-31] MEDS: METHYLPREDNISOLONE SOD SUCC 40 MG/ML VIAL IV SCH ×3 (02:19→18:38)
[2021-12-31] MEDS: CLONIDINE 0.1MG TABLET PO PRN ×3 (02:19→20:45)
[2021-12-31] MEDS: IPRATROPIUM/ALBUTEROL 0.5-3(2.5)MG/3ML NEB HHN SCH ×6 (02:27→21:55)
[2021-12-31 04:16] LABS: BG BASE EXCESS 9.4 mmol/L (-2.0-2.0); BG CARBOXYHEMOGLOBIN 1.1 % (0.5-1.5); BG DEOXYHEMOGLOBIN 12.9 % (0.0-5.0); BG FRACTION INSPIRED OXYGEN 40; BG HCO3 ACT 35.6 mmol/L (22.0-26.0); BG METHEMOGLOBIN 0.7 % (0.0-1.5); BG OXYGEN SATURATION 86.9 % (92.0-98.5); BG OXYHEMOGLOBIN 85.3 % (94.0-97.0); BG PCO2 51.8 mmHg (35.0-45.0); BG PH 7.455 (7.350-7.450); BG PO2 51.8 mmHg (75.0-100.0); BG SAMPLE SITE RIGHT RADIAL; BG TOTAL HEMOGLOBIN 18.2 g/dL (12.0-18.0); BG VENT MODE NASAL CANNULA
[2021-12-31 08:00] VITALS: BP 186/94
[2021-12-31] MEDS: ZINC SULFATE 220 MG ( 50 ) CAPSULE PO SCH (10:32)
[2021-12-31] MEDS: DOCUSATE SODIUM 250MG CAPSULE PO SCH ×2 (10:32→18:36)
[2021-12-31] MEDS: PAROXETINE HCL 10MG TABLET PO SCH (10:32)
[2021-12-31] MEDS: BENZTROPINE MESYLATE 0.5MG TABLET PO SCH ×2 (10:32→18:38)
[2021-12-31] MEDS: FUROSEMIDE 20MG TABLET PO SCH ×2 (10:32→18:37)
[2021-12-31] MEDS: ASCORBIC ACID 500 MG TABLET PO SCH (10:33)
[2021-12-31] MEDS: DIVALPROEX SODIUM 500MG DR TABLET PO SCH (10:33)
[2021-12-31] MEDS: ENALAPRIL 5MG TABLET PO SCH ×2 (10:33→18:37)
[2021-12-31] MEDS: MULTIVITAMINS,THER W-MINERALS TABLET PO SCH (10:33)
[2021-12-31] MEDS: OLANZAPINE 5MG TABLET PO SCH ×2 (10:37→18:37)
[2021-12-31] MEDS: LEVOFLOXACIN 500MG PREMIX 100 ML IV SCH (14:14)
[2021-12-31] MEDS: NA PHOS,M-B/NA PHOS,DI-BA ENEMA 118ML PR NR ×2 (16:45→18:35)
[2021-12-31 20:00] VITALS: BP 163/75
[2021-12-31] MEDS: FAMOTIDINE 20MG TABLET PO SCH (20:45)
[2022-01-01] VITALS: BP 150/76
[2022-01-01] MEDS: IPRATROPIUM/ALBUTEROL 0.5-3(2.5)MG/3ML NEB HHN SCH ×6 (00:43→20:00)
[2022-01-01] MEDS: METHYLPREDNISOLONE SOD SUCC 40 MG/ML VIAL IV SCH ×2 (03:15→12:25)
[2022-01-01 04:00] VITALS: BP 160/72
[2022-01-01 08:00] VITALS: BP 190/104
[2022-01-01] MEDS ORDERED: DIAZEPAM 5 MG TABLET PO NR (09:00)
[2022-01-01] MEDS: CLONIDINE 0.1MG TABLET PO PRN ×2 (09:19→16:03)
[2022-01-01] MEDS: BENZTROPINE MESYLATE 0.5MG TABLET PO SCH ×2 (09:20→18:34)
[2022-01-01] MEDS: PAROXETINE HCL 10MG TABLET PO SCH (09:20)
[2022-01-01] MEDS: FUROSEMIDE 20MG TABLET PO SCH ×2 (09:20→18:34)
[2022-01-01] MEDS: MULTIVITAMINS,THER W-MINERALS TABLET PO SCH (09:21)
[2022-01-01] MEDS: DOCUSATE SODIUM 250MG CAPSULE PO SCH ×2 (09:21→18:34)
[2022-01-01] MEDS: ASCORBIC ACID 500 MG TABLET PO SCH (09:21)
[2022-01-01] MEDS: DIVALPROEX SODIUM 500MG DR TABLET PO SCH (09:21)
[2022-01-01] MEDS: ENALAPRIL 5MG TABLET PO SCH ×2 (09:21→18:35)
[2022-01-01] MEDS: OLANZAPINE 5MG TABLET PO SCH ×2 (09:21→18:34)
[2022-01-01] MEDS: ZINC SULFATE 220 MG ( 50 ) CAPSULE PO SCH (09:21)
[2022-01-01 11:57] VITALS: BP 168/107
[2022-01-01] MEDS: HYDROCODONE/ACETAMINOPHEN 10/325MG TABLET PO PRN ×2 (13:36→21:50)
[2022-01-01] MEDS ORDERED: NALOXONE HCL 0.4MG/ML VIAL IV PRN (14:45)
[2022-01-01] MEDS ORDERED: LACTULOSE 20G/30ML UDC PO PRN (14:45)
[2022-01-01] MEDS ORDERED: NA PHOS,M-B/NA PHOS,DI-BA ENEMA 118ML PR NR (14:45)
[2022-01-01] MEDS: LEVOFLOXACIN 500MG PREMIX 100 ML IV SCH (15:15)
[2022-01-01 16:00] VITALS: BP 182/99
[2022-01-01] MEDS: AMLODIPINE 10MG TABLET PO SCH (18:34)
[2022-01-01 20:00] VITALS: BP 158/89
[2022-01-01] MEDS: FAMOTIDINE 20MG TABLET PO SCH (21:00)
[2022-01-02] VITALS: BP 142/84
[2022-01-02 04:00] VITALS: BP 143/109
[2022-01-02] MEDS: IPRATROPIUM/ALBUTEROL 0.5-3(2.5)MG/3ML NEB HHN SCH ×3 (04:00→21:10)
[2022-01-02 08:00] VITALS: BP 174/92
[2022-01-02] MEDS: BENZTROPINE MESYLATE 0.5MG TABLET PO SCH ×2 (09:08→18:10)
[2022-01-02] MEDS: DOCUSATE SODIUM 250MG CAPSULE PO SCH ×2 (09:08→18:10)
[2022-01-02] MEDS: MULTIVITAMINS,THER W-MINERALS TABLET PO SCH (09:08)
[2022-01-02] MEDS: OLANZAPINE 5MG TABLET PO SCH ×2 (09:08→18:10)
[2022-01-02] MEDS: ENALAPRIL 5MG TABLET PO SCH ×2 (09:08→18:10)
[2022-01-02] MEDS: PAROXETINE HCL 10MG TABLET PO SCH (09:08)
[2022-01-02] MEDS: AMLODIPINE 10MG TABLET PO SCH (09:08)
[2022-01-02] MEDS: ZINC SULFATE 220 MG ( 50 ) CAPSULE PO SCH (09:08)
[2022-01-02] MEDS: PREDNISONE 20MG TABLET PO SCH (09:08)
[2022-01-02] MEDS: ASCORBIC ACID 500 MG TABLET PO SCH (09:08)
[2022-01-02] MEDS: DIVALPROEX SODIUM 500MG DR TABLET PO SCH (09:08)
[2022-01-02] MEDS: FUROSEMIDE 20MG TABLET PO SCH ×2 (09:08→18:10)
[2022-01-02] MEDS: HYDROCODONE/ACETAMINOPHEN 10/325MG TABLET PO PRN ×2 (10:25→16:38)
[2022-01-02 12:00] VITALS: BP 146/0
[2022-01-02] MEDS: LEVOFLOXACIN 500MG PREMIX 100 ML IV SCH (13:45)
[2022-01-02 16:00] VITALS: BP 121/73
[2022-01-02] MEDS ORDERED: GUAIFENESIN-DM 200MG-20MG/10ML UDC PO PRN (16:00)
[2022-01-02] MEDS: FAMOTIDINE 20MG TABLET PO SCH (20:26)
[2022-01-02 20:31] VITALS: BP 114/74
[2022-01-03] VITALS: BP 133/80
[2022-01-03 04:00] VITALS: BP 147/89
[2022-01-03] MEDS: IPRATROPIUM/ALBUTEROL 0.5-3(2.5)MG/3ML NEB HHN SCH ×4 (04:00→21:35)
[2022-01-03 08:00] VITALS: BP 161/93
[2022-01-03] MEDS: DIVALPROEX SODIUM 500MG DR TABLET PO SCH (08:15)
[2022-01-03] MEDS: OLANZAPINE 5MG TABLET PO SCH ×2 (08:15→17:06)
[2022-01-03] MEDS: ENALAPRIL 5MG TABLET PO SCH ×2 (08:15→17:14)
[2022-01-03] MEDS: PAROXETINE HCL 10MG TABLET PO SCH (08:16)
[2022-01-03] MEDS: AMLODIPINE 10MG TABLET PO SCH (08:17)
[2022-01-03] MEDS: BENZTROPINE MESYLATE 0.5MG TABLET PO SCH ×2 (08:17→17:06)
[2022-01-03] MEDS: ASCORBIC ACID 500 MG TABLET PO SCH (08:17)
[2022-01-03] MEDS: DOCUSATE SODIUM 250MG CAPSULE PO SCH ×2 (08:17→17:06)
[2022-01-03] MEDS: FUROSEMIDE 20MG TABLET PO SCH ×2 (08:18→17:06)
[2022-01-03] MEDS: PREDNISONE 20MG TABLET PO SCH (08:18)
[2022-01-03] MEDS: IBUPROFEN 400MG TABLET PO PRN ×2 (10:07→17:06)
[2022-01-03] MEDS: ZINC SULFATE 220 MG ( 50 ) CAPSULE PO SCH (10:12)
[2022-01-03] MEDS: MULTIVITAMINS,THER W-MINERALS TABLET PO SCH (10:12)
[2022-01-03 12:00] VITALS: BP 134/83
[2022-01-03 16:00] VITALS: BP 153/79
[2022-01-03 20:00] VITALS: BP 132/92
[2022-01-03] MEDS: FAMOTIDINE 20MG TABLET PO SCH (21:00)
[2022-01-03] MEDS: HYDROCODONE/ACETAMINOPHEN 10/325MG TABLET PO PRN (23:17)
[2022-01-04] VITALS: BP 146/90
[2022-01-04] MEDS ORDERED: DIAZEPAM 5 MG TABLET PO NR ×2 (07:30→08:30)
[2022-01-04 08:00] VITALS: BP 151/82
[2022-01-04] MEDS: IPRATROPIUM/ALBUTEROL 0.5-3(2.5)MG/3ML NEB HHN SCH ×3 (08:02→20:00)
[2022-01-04] MEDS: MULTIVITAMINS,THER W-MINERALS TABLET PO SCH (08:45)
[2022-01-04] MEDS: DOCUSATE SODIUM 250MG CAPSULE PO SCH ×2 (08:45→17:45)
[2022-01-04] MEDS: BENZTROPINE MESYLATE 0.5MG TABLET PO SCH ×2 (08:46→17:44)
[2022-01-04] MEDS: DIVALPROEX SODIUM 500MG DR TABLET PO SCH (08:46)
[2022-01-04] MEDS: ENALAPRIL 5MG TABLET PO SCH ×2 (08:46→17:45)
[2022-01-04] MEDS: PAROXETINE HCL 10MG TABLET PO SCH (08:46)
[2022-01-04] MEDS: ZINC SULFATE 220 MG ( 50 ) CAPSULE PO SCH (08:46)
[2022-01-04] MEDS: ASCORBIC ACID 500 MG TABLET PO SCH (08:46)
[2022-01-04] MEDS: OLANZAPINE 5MG TABLET PO SCH ×2 (08:47→17:44)
[2022-01-04] MEDS: AMLODIPINE 10MG TABLET PO SCH (08:47)
[2022-01-04] MEDS: FUROSEMIDE 20MG TABLET PO SCH ×2 (08:47→17:44)
[2022-01-04] MEDS: PREDNISONE 20MG TABLET PO SCH (08:47)
[2022-01-04 12:00] VITALS: BP 149/91
[2022-01-04 16:00] VITALS: BP 145/67
[2022-01-04 20:00] VITALS: BP 126/86
[2022-01-04] MEDS: FAMOTIDINE 20MG TABLET PO SCH (20:37)
[2022-01-05] VITALS: BP_SYST 114; BP_SYST 136; BP_DIAS 75; BP_DIAS 87
[2022-01-05 08:00] VITALS: BP 146/85
[2022-01-05] MEDS: IPRATROPIUM/ALBUTEROL 0.5-3(2.5)MG/3ML NEB HHN SCH ×5 (08:00→20:00)
[2022-01-05] MEDS: MULTIVITAMINS,THER W-MINERALS TABLET PO SCH (09:01)
[2022-01-05] MEDS: FUROSEMIDE 20MG TABLET PO SCH ×2 (09:02→16:50)
[2022-01-05] MEDS: AMLODIPINE 10MG TABLET PO SCH (09:02)
[2022-01-05] MEDS: PAROXETINE HCL 10MG TABLET PO SCH (09:02)
[2022-01-05] MEDS: OLANZAPINE 5MG TABLET PO SCH ×2 (09:02→16:51)
[2022-01-05] MEDS: ZINC SULFATE 220 MG ( 50 ) CAPSULE PO SCH (09:02)
[2022-01-05] MEDS: PREDNISONE 20MG TABLET PO SCH (09:02)
[2022-01-05] MEDS: BENZTROPINE MESYLATE 0.5MG TABLET PO SCH ×2 (09:03→16:51)
[2022-01-05] MEDS: ASCORBIC ACID 500 MG TABLET PO SCH (09:03)
[2022-01-05] MEDS: DOCUSATE SODIUM 250MG CAPSULE PO SCH ×2 (09:03→16:50)
[2022-01-05] MEDS: ENALAPRIL 5MG TABLET PO SCH ×2 (09:03→16:50)
[2022-01-05] MEDS: DIVALPROEX SODIUM 500MG DR TABLET PO SCH (09:04)
[2022-01-05 12:00] VITALS: BP 134/74
[2022-01-05 16:00] VITALS: BP 131/79
[2022-01-05] MEDS: NYSTATIN POWDER 15GM TOP SCH (17:36)
[2022-01-05 20:00] VITALS: BP 122/77
[2022-01-05] MEDS: FAMOTIDINE 20MG TABLET PO SCH (20:44)
[2022-01-06] MEDS: IPRATROPIUM/ALBUTEROL 0.5-3(2.5)MG/3ML NEB HHN SCH ×5 (01:01→21:35)
[2022-01-06 04:00] VITALS: BP 150/89
[2022-01-06 08:30] VITALS: BP 113/81
[2022-01-06] MEDS: ASCORBIC ACID 500 MG TABLET PO SCH (09:39)
[2022-01-06] MEDS: MULTIVITAMINS,THER W-MINERALS TABLET PO SCH (09:39)
[2022-01-06] MEDS: PREDNISONE 20MG TABLET PO SCH (09:39)
[2022-01-06] MEDS: ZINC SULFATE 220 MG ( 50 ) CAPSULE PO SCH (09:39)
[2022-01-06] MEDS: DOCUSATE SODIUM 250MG CAPSULE PO SCH ×2 (09:39→18:15)
[2022-01-06] MEDS: BENZTROPINE MESYLATE 0.5MG TABLET PO SCH ×2 (09:40→18:14)
[2022-01-06] MEDS: FUROSEMIDE 20MG TABLET PO SCH ×2 (09:40→18:14)
[2022-01-06] MEDS: PAROXETINE HCL 10MG TABLET PO SCH (09:40)
[2022-01-06] MEDS: DIVALPROEX SODIUM 500MG DR TABLET PO SCH (09:42)
[2022-01-06] MEDS: OLANZAPINE 5MG TABLET PO SCH ×2 (09:42→18:13)
[2022-01-06] MEDS: AMLODIPINE 10MG TABLET PO SCH (09:42)
[2022-01-06] MEDS: ENALAPRIL 5MG TABLET PO SCH ×2 (09:43→18:14)
[2022-01-06] MEDS: NYSTATIN POWDER 15GM TOP SCH ×3 (10:12→18:15)
[2022-01-06 12:00] VITALS: BP 145/76
[2022-01-06] MEDS: HYDROCODONE/ACETAMINOPHEN 10/325MG TABLET PO PRN ×2 (12:38→21:50)
[2022-01-06 13:00] VITALS: BP 124/79
[2022-01-06 16:00] VITALS: BP 116/76
[2022-01-06 20:00] VITALS: BP 133/80
[2022-01-06] MEDS: FAMOTIDINE 20MG TABLET PO SCH (21:44)
[2022-01-07] VITALS (7 sets, daily range): BP systolic 99–161; BP diastolic 61–95
[2022-01-07] MEDS: IPRATROPIUM/ALBUTEROL 0.5-3(2.5)MG/3ML NEB HHN SCH ×5 (00:50→16:00)
[2022-01-07] MEDS: HYDROCODONE/ACETAMINOPHEN 10/325MG TABLET PO PRN ×2 (04:33→13:34)
[2022-01-07] MEDS: OLANZAPINE 5MG TABLET PO SCH (08:21)
[2022-01-07] MEDS: BENZTROPINE MESYLATE 0.5MG TABLET PO SCH (08:22)
[2022-01-07] MEDS: MULTIVITAMINS,THER W-MINERALS TABLET PO SCH (08:22)
[2022-01-07] MEDS: DOCUSATE SODIUM 250MG CAPSULE PO SCH (08:22)
[2022-01-07] MEDS: FUROSEMIDE 20MG TABLET PO SCH (08:22)
[2022-01-07] MEDS: ASCORBIC ACID 500 MG TABLET PO SCH (08:22)
[2022-01-07] MEDS: PAROXETINE HCL 10MG TABLET PO SCH (08:22)
[2022-01-07] MEDS: ZINC SULFATE 220 MG ( 50 ) CAPSULE PO SCH (08:22)
[2022-01-07] MEDS: DIVALPROEX SODIUM 500MG DR TABLET PO SCH (08:22)
[2022-01-07] MEDS: AMLODIPINE 10MG TABLET PO SCH (08:23)
[2022-01-07] MEDS: PREDNISONE 20MG TABLET PO SCH (08:23)
[2022-01-07] MEDS: NYSTATIN POWDER 15GM TOP SCH ×2 (08:24→13:35)
[2022-01-07] MEDS: ENALAPRIL 5MG TABLET PO SCH (08:24)
[2022-01-07] MEDS ORDERED: HYDR-4001 MT (11:43)
[2022-01-07] MEDS ORDERED: AMLO10TA80 PO (11:43)
[2022-01-07] MEDS: IBUPROFEN 400MG TABLET PO PRN (16:17)
== END 2022-01-07 16:35 | DRG 321 ==
LOC: ER 07:28 → EDBEDREQ 14:13 → MICUSO 14:17 → EDBEDREQ 14:54 → EDBEDREQSVC 14:54 → 5EST 12-26 14:55 → 6EST 12-29 18:00
PROVIDERS: ADMIT Internal Medicine; ATTEND Internal Medicine
PROC: 0RG2071 Fusion of 2 or more Cervical Vertebral Joints with Autologous Tissue Substitute, Posterior Approach, Posterior Column, Open Approach (ICD-10-PCS; principal; 2021-12-26)
PROC: 01N10ZZ Release Cervical Nerve, Open Approach (ICD-10-PCS; 2021-12-26)
PROC: 02HV33Z Insertion of Infusion Device into Superior Vena Cava, Percutaneous Approach (ICD-10-PCS; 2021-12-26)
PROC: B548ZZA Ultrasonography of Superior Vena Cava, Guidance (ICD-10-PCS; 2021-12-26)
DX: M48.02 Spinal stenosis, cervical region (principal); J96.01 Acute respiratory failure with hypoxia; G82.50 Quadriplegia, unspecified; E44.1 Mild protein-calorie malnutrition; F25.9 Schizoaffective disorder, unspecified; J18.9 Pneumonia, unspecified organism; E11.9 Type 2 diabetes mellitus without complications; D75.1 Secondary polycythemia; E66.01 Morbid (severe) obesity due to excess calories; M54.12 Radiculopathy, cervical region; J44.0 Chronic obstructive pulmonary disease with (acute) lower respiratory infection; F32.A Depression, unspecified; G40.909 Epilepsy, unspecified, not intractable, without status epilepticus; I10 Essential (primary) hypertension; F17.210 Nicotine dependence, cigarettes, uncomplicated; Z20.822 Contact with and (suspected) exposure to COVID-19; R13.10 Dysphagia, unspecified; R26.9 Unspecified abnormalities of gait and mobility; K21.9 Gastro-esophageal reflux disease without esophagitis; R53.81 Other malaise; Z88.6 Allergy status to analgesic agent; Z88.0 Allergy status to penicillin; Z88.8 Allergy status to other drugs, medicaments and biological substances; Z68.41 Body mass index [BMI] 40.0-44.9, adult; Z79.899 Other long term (current) drug therapy; Z71.3 Dietary counseling and surveillance
CPT/HCPCS: 36415; 36600; 71045; 72040; 72128; 72131; 72141; 72146; 72148; 72170; 76000; 76937; 80048; 80053; 80305; 81003; 82375; 82805; 83605; 83880; 84145; 84443; 84484; 85025; 86592; 86850; 86900; 87426; 88304; 88311; 90732; 92610; 93005; 94640; 97162; 97166; 97530; 97535; 99285; C1725; J0360; J0690; J1100; J1170; J1580; J1885; J1956; J2270; J2405; J2710; J2920; J3490; J7040; J7050; J7512; L0172; P9047

== ENCOUNTER 2023-10-14 17:51 | Emergency (ER) | payer MEDICARE, MEDICAID ==
[~2023-10-14] VITALS: Ht 165.1 cm; Wt 99.0 kg
[~2023-10-14 17:51] MED LIST changes: +AMLO10TA80 PO; +BENZ0.5T3 MT; -BENZ0.5T43 MT; -DIVA-75 PO; -DOXY100C5 PO; +ENAL-75 PO; -ENAL5TAB21 PO; -FURO-151 MT; +FURO-152 MT; +HYDR-4001 MT; -LAMO25TA71 PO; -LEVO500T89 PO; +METO-396 MT; -MOM MT; -NIZA150C7 PO; +POTA-354 MT
[2023-10-14 18:06] VITALS: O2SAT 99
[2023-10-14] MEDS ORDERED: SODIUM CHLORIDE 0.9% 1,000 ML IV ONE (20:00)
[2023-10-14 20:11] LABS: BASOPHILS % 0.4 % (0.0-2.0); EOSINOPHILS % 1.4 % (0.0-5.0); HEMATOCRIT. 48.9 % (36.0-48.0); HEMOGLOBIN. 16.6 g/dL (12.0-16.0); LYMPHOCYTES % 42.2 % (20.0-50.0); MEAN CORPUSCULAR HEMOGLOBIN 31.9 pg (28.0-32.0); MEAN PLATELET VOLUME 8.8 fl (7.4-10.4); MONOCYTES % 9.6 % (2.0-8.0); NEUTROPHILS % 46.4 % (40.0-76.0); PLATELET 165 x1000/uL (130-400); WHITE BLOOD COUNT 7.3 x1000/uL (4.5-11.0)
[2023-10-14 20:22] LABS: PARTIAL THROMBOPLASTIN TIME 32.1 sec (23.4-31.0); PROTHROMBIN TIME 10.7 sec (9.6-11.0)
[2023-10-14 20:25] LABS: ALANINE AMINOTRANSFERASE 10 IU/L (10-49); ALBUMIN 3.9 g/dL (3.2-4.8); ASPARTATE AMINOTRANSFERASE 16 IU/L (<34); BILIRUBIN TOTAL 0.7 mg/dL (0.1-1.0); CALCIUM 9.3 mg/dL (8.7-10.4); CARBON DIOXIDE 26 mEq/L (21-32); CHLORIDE 108 mEq/L (98-107); CREATININE 0.5 mg/dL (0.6-1.0); GLUCOSE 98 mg/dL (70-105); POTASSIUM 3.9 mEq/L (3.5-5.1); PROTEIN TOTAL 6.8 g/dL (6.0-8.3); SODIUM 140 mEq/L (136-145); UREA NITROGEN BLOOD 14 mg/dL (9-23)
[2023-10-14 20:36] LABS: TROPONIN I HIGH SENSITIVITY < 4 ng/L (3.0-34)
[2023-10-14 21:46] VITALS: TEMP 98.5
[2023-10-15] MEDS ORDERED: TOPUD MT (00:29)
[2023-10-15] MEDS ORDERED: CLIN-116 MT (00:29)
[2023-10-15] MEDS ORDERED: IBUP-1523 MT (00:29)
[2023-10-15 08:43] VITALS: BP 133/77; PULSE 62; RESP 19
== END 2023-10-15 08:45 ==
LOC: ER 17:51
DX: R53.1 Weakness (principal); I11.0 Hypertensive heart disease with heart failure; I50.9 Heart failure, unspecified; R51.9 Headache, unspecified; J44.1 Chronic obstructive pulmonary disease with (acute) exacerbation; Z88.0 Allergy status to penicillin; Z88.6 Allergy status to analgesic agent; Z88.1 Allergy status to other antibiotic agents; Z88.5 Allergy status to narcotic agent; Z79.899 Other long term (current) drug therapy; Z98.890 Other specified postprocedural states; Z86.59 Personal history of other mental and behavioral disorders
CPT/HCPCS: 99285; 70450; 71045; 80053; 83880; 85025; 85610; 85730; 84484; 36415; 93005; J7030